=== PATIENT | male | born 1955 | race Caucasian/White ===

== ENCOUNTER 2023-02-24 16:46 | Inpatient (IN) ==
[2023-02-24] MEDS ORDERED: Ondansetron 4 mg VIAL 2 MG/ML 2 ml VIAL IV PRN (20:17)
[2023-02-24] MEDS: Enoxaparin 80 MG/0.8 ML SYR SUBCUT SCH (21:14)
[2023-02-25 06:19] LABS: ABS Basophils 0.1 10^3/uL (0.0-0.1); ABS Eosinophils 0.2 10^3/uL (0.0-0.5); ABS Lymphocytes 1.9 10^3/uL (1.0-4.8); ABS Monocytes 0.7 10^3/uL (0.0-1.1); ABS Neutrophils 4.7 10^3/uL (1.5-7.6); ABS Nucleated RBC 0.01 10^3/ul; Eosinophil % 2.1 %; Hematocrit 41.8 % (38-53); Hemoglobin 14.4 g/dL (13.2-16.3); Lymphocyte % 25.7 %; Mean Corpuscular Hemoglobin 31.5 pg (27-33); Mean Corpuscular Hgb Conc 34.5 g/dL (31-36); Mean Corpuscular Volume 91.1 fL (80-97); Mean Platelet Volume 7.7 fL (7.5-11.2); Nucleated Red Blood Cells % 0.2 /100 WBC (0.0-0.4); Platelet Count 339 10^3/uL (150-450); Red Blood Count 4.58 10^6/uL (4.06-5.63); Red Cell Distribution Width 14.3 % (12-17); White Blood Count 7.5 10^3/uL (3.6-10.2)
[2023-02-25 06:24] LABS: Activated Partial Thrombo Time 33.7 seconds (26.0-38.0); INR 1.18 (0.83-1.13)
[2023-02-25 06:50] LABS: Calcium 8.9 mg/dL (8.6-10.3); Creatinine, Serum 0.98 mg/dL (0.67-1.17); Magnesium 2.2 mg/dL (1.9-2.7); Potassium 4.4 mmol/L (3.5-5.0); eGFR CKD-EPI 84.5 (>60)
[2023-02-25] MEDS: Enoxaparin 80 MG/0.8 ML SYR SUBCUT SCH (09:58)
[2023-02-26 06:51] LABS: ABS Basophils 0.1 10^3/uL (0.0-0.1); ABS Eosinophils 0.2 10^3/uL (0.0-0.5); ABS Lymphocytes 2.1 10^3/uL (1.0-4.8); ABS Monocytes 0.7 10^3/uL (0.0-1.1); ABS Neutrophils 5.2 10^3/uL (1.5-7.6); Eosinophil % 2.3 %; Hematocrit 41.1 % (38-53); Lymphocyte % 25.4 %; Mean Corpuscular Hemoglobin 31.1 pg (27-33); Mean Corpuscular Hgb Conc 34.2 g/dL (31-36); Mean Corpuscular Volume 90.8 fL (80-97); Mean Platelet Volume 6.9 fL (7.5-11.2); Platelet Count 389 10^3/uL (150-450); Red Blood Count 4.52 10^6/uL (4.06-5.63); Red Cell Distribution Width 14.2 % (12-17); White Blood Count 8.2 10^3/uL (3.6-10.2)
[2023-02-26 08:03] LABS: Calcium 8.8 mg/dL (8.6-10.3); Creatinine, Serum 0.75 mg/dL (0.67-1.17); Magnesium 2.1 mg/dL (1.9-2.7); Potassium 4.3 mmol/L (3.5-5.0); eGFR CKD-EPI 98.9 (>60)
[2023-02-26 09:03] LABS: HDL Cholesterol 37.5 mg/dL
[2023-02-26] MEDS ORDERED: Regadenoson 0.4 MG/5 ML SYRINGE ONE (13:41)
[2023-02-26] MEDS ORDERED: Aminophylline 25 MG/ML VIAL ONE (13:42)
[2023-02-27] MEDS ORDERED: Influenza vaccine *QUAD* *2023-24* 0.5 ML SYRINGE IM ONE (11:16)
[2023-02-27 14:14] VITALS: BP 116/72
== END 2023-02-27 14:32 | disposition home or self-care (01) | DRG 134 ==
LOC: ED 16:46 → EDHOLD 16:46 → SUATTDRO 20:17 → MEDTELE 20:17
PROVIDERS: ADMIT Hospitalist; ATTEND Internal Medicine